=== PATIENT | female | born 1975 | race Caucasian/White ===

== ENCOUNTER 2017-11-24 05:09 | Emergency (ER) | payer SELFPAY ==
[~2017-11-24] VITALS: Ht 160 cm; Wt 90.0 kg
[~2017-11-24 05:09] MED LIST: PHENTERMINE37.5 M1 OR; XANAX0.5 MG OR
[2017-11-24] MEDS ORDERED: METFORMIN500 MG PO (05:20)
[2017-11-24] MEDS ORDERED: BIAXIN500 MG PO (06:05)
[2017-11-24 06:20] VITALS: BP 141/94
== END 2017-11-24 06:20 | disposition home or self-care (01) | DRG 153 ==
LOC: ED 05:09
DX: J02.0 Streptococcal pharyngitis (principal); E11.9 Type 2 diabetes mellitus without complications; Z79.84 Long term (current) use of oral hypoglycemic drugs

== ENCOUNTER 2018-05-02 17:00 | Emergency (ER) | payer SELFPAY ==
[~2018-05-02] VITALS: Ht 160 cm; Wt 87.8 kg
[~2018-05-02 17:00] MED LIST changes: +BIAXIN500 MG PO; +METFORMIN500 MG PO
[2018-05-02] MEDS ORDERED: DOXYCYCL HYC100 MG PO (17:24)
[2018-05-02] MEDS ORDERED: PROAIR HFA108 MCG/AC PO (17:25)
[2018-05-02 17:30] VITALS: BP 143/78
[2018-05-02] MEDS ORDERED: GLIPIZIDE5 M2 PO (17:32)
== END 2018-05-02 17:30 | disposition home or self-care (01) | DRG 153 ==
LOC: ED 17:00
DX: J06.9 Acute upper respiratory infection, unspecified (principal); R50.9 Fever, unspecified; R05 Cough

== ENCOUNTER 2018-05-06 18:57 | Emergency (ER) | payer SELFPAY ==
[~2018-05-06] VITALS: Ht 160 cm; Wt 85.0 kg
[~2018-05-06 18:57] MED LIST changes: +DOXYCYCL HYC100 MG PO; +GLIPIZIDE5 M2 PO; +PROAIR HFA108 MCG/AC PO
[2018-05-06 20:20] LABS: INFLUENZA B NONE DETECTED (NONE DETECT)
[2018-05-06] MEDS ORDERED: ZITHROMAX500 MG PO (21:25)
[2018-05-06] MEDS ORDERED: MEDDOSEPAK PO ×2 (21:25→21:27)
[2018-05-06] MEDS ORDERED: TESSALON PERLE100 MG PO (21:25)
[2018-05-06] MEDS ORDERED: ALBUTEROL SUL0.083 % IN (21:25)
[2018-05-06 21:30] VITALS: BP 134/73
== END 2018-05-06 21:32 | disposition home or self-care (01) | DRG 203 ==
LOC: ED 18:57
DX: J40 Bronchitis, not specified as acute or chronic (principal); E11.9 Type 2 diabetes mellitus without complications

== ENCOUNTER 2019-04-10 10:38 | Inpatient (IN) | payer SELFPAY ==
[~2019-04-10] VITALS: Ht 160 cm; Wt 91.0 kg
[~2019-04-10 10:38] MED LIST changes: +ALBUTEROL SUL0.083 % IN; +CLEOCIN150 MG PO; +MEDDOSEPAK PO; +METFORMIN1000 MG PO; +TESSALON PERLE100 MG PO; +ZITHROMAX500 MG PO
[2019-04-10 11:43] LABS: HEMATOCRIT 38.8 % (37.0-47.0); HEMOGLOBIN 13.1 g/dl (12.0-16.0); IMMATURE GRANULOCYTES 1.1 % (0.0-5.0); MEAN CELL VOLUME 85.7 fL CALC (80.0-100.0); MEAN CORPUSCULAR HGB 28.9 pG CALC (26.0-32.0); MEAN CORPUSCULAR HGB CONC 33.8 g/L CALC (32.0-36.0); NEUT# 10.67 thou/uL (2.00-7.15); RED BLOOD COUNT 4.53 mill/uL (4.20-5.60); RED CELL DISTRI WIDTH 13.6 % (11.5-15.5)
[2019-04-10 11:58] LABS: URINE BLOOD DIPSTICK LARGE (NEGATIVE); URINE GLUCOSE - DIPSTICK >=1000 mg/dL (NEGATIVE); URINE KETONE TRACE mg/dL (NEGATIVE); URINE PH 5.5 (4.5-8.0); URINE PROTEIN - DIPSTICK 100 mg/dL (NEG-TRACE); URINE SPECIFIC GRAVITY 1.015
[2019-04-10 11:59] LABS: URINE BILIRUBIN - DIPSTICK SMALL (NEGATIVE); URINE COLOR DK. YELLOW; URINE LEUK ESTERASE SMALL (NEGATIVE); URINE NITRITE - DIPSTICK POSITIVE (Negative)
[2019-04-10 12:00] LABS: URINE BACTERIA MODERATE hpf; URINE EPITHELIAL CELLS MODERATE EPI/hpf (0-FEW); URINE RBC 25-50 RBC/hpf (0-5)
[2019-04-10 12:05] LABS: CREATININE 1.5 mg/dL (0.5-1.0); POTASSIUM 3.5 mmol/l (3.5-5.1)
[2019-04-10 12:06] LABS: BILIRUBIN, TOTAL 0.9 mg/dL (0.0-1.4)
[2019-04-10 15:12] VITALS: BP 122/72
[2019-04-10 19:05] VITALS: BP 132/69
[2019-04-11] VITALS (11 sets, daily range): BP systolic 93–117; BP diastolic 46–69
[2019-04-11 05:31] LABS: HEMATOCRIT 33.5 % (37.0-47.0); HEMOGLOBIN 11.3 g/dl (12.0-16.0); MEAN CELL VOLUME 85.2 fL CALC (80.0-100.0); MEAN CORPUSCULAR HGB 28.8 pG CALC (26.0-32.0); MEAN CORPUSCULAR HGB CONC 33.7 g/L CALC (32.0-36.0); PLATELET COUNT 109 thou/uL (130-400); RED BLOOD COUNT 3.93 mill/uL (4.20-5.60); RED CELL DISTRI WIDTH 13.4 % (11.5-15.5)
[2019-04-11 05:32] LABS: IMMATURE GRANULOCYTES 1.8 % (0.0-5.0)
[2019-04-11 05:37] LABS: CREATININE 1.4 mg/dL (0.5-1.0); MAGNESIUM 1.9 mg/dL (1.6-2.3)
[2019-04-11 06:07] LABS: BAND 13 % (0-8); IMMATURE CELLS 0 %; MANUAL DIFFERENTIAL YES; NUCLEATED RED BLOOD CELL 0 /100WBC (0-1)
[2019-04-12 04:52] VITALS: BP 116/70
[2019-04-12 08:07] VITALS: BP 118/67
[2019-04-12 08:50] VITALS: BP 119/69
[2019-04-12 10:47] VITALS: BP 114/66
[2019-04-12 15:25] VITALS: BP 116/71
[2019-04-12 19:05] VITALS: BP 136/77
[2019-04-13] VITALS (7 sets, daily range): BP systolic 124–146; BP diastolic 63–80
[2019-04-13 19:41] LABS: HEMATOCRIT 38.7 % (37.0-47.0); HEMOGLOBIN 12.9 g/dl (12.0-16.0); MEAN CELL VOLUME 85.6 fL CALC (80.0-100.0); MEAN CORPUSCULAR HGB 28.5 pG CALC (26.0-32.0); MEAN CORPUSCULAR HGB CONC 33.3 g/L CALC (32.0-36.0); RED BLOOD COUNT 4.52 mill/uL (4.20-5.60); RED CELL DISTRI WIDTH 14.6 % (11.5-15.5)
[2019-04-13 19:49] LABS: ALBUMIN 2.4 g/dL (3.2-5.0); BILIRUBIN, TOTAL 0.8 mg/dL (0.0-1.4); CREATININE 1.2 mg/dL (0.5-1.0); POTASSIUM 3.4 mmol/l (3.5-5.1); TOTAL PROTEIN 5.4 g/dL (6.3-8.2)
[2019-04-14 04:12] VITALS: BP 148/82
[2019-04-14 04:59] LABS: HEMATOCRIT 34.8 % (37.0-47.0); HEMOGLOBIN 11.7 g/dl (12.0-16.0); IMMATURE GRANULOCYTES 5.1 % (0.0-5.0); MEAN CELL VOLUME 83.5 fL CALC (80.0-100.0); MEAN CORPUSCULAR HGB 28.1 pG CALC (26.0-32.0); MEAN CORPUSCULAR HGB CONC 33.6 g/L CALC (32.0-36.0); PLATELET COUNT 188 thou/uL (130-400); RED BLOOD COUNT 4.17 mill/uL (4.20-5.60); RED CELL DISTRI WIDTH 14.2 % (11.5-15.5)
[2019-04-14 05:00] LABS: MANUAL DIFFERENTIAL YES
[2019-04-14 05:05] LABS: ALBUMIN 2.2 g/dL (3.2-5.0); BILIRUBIN, TOTAL 0.6 mg/dL (0.0-1.4); CREATININE 1.2 mg/dL (0.5-1.0); POTASSIUM 3.2 mmol/l (3.5-5.1); TOTAL PROTEIN 4.9 g/dL (6.3-8.2)
[2019-04-14 05:26] LABS: PLATELET ESTIMATE NORMAL
[2019-04-14 07:45] VITALS: BP 149/76
[2019-04-14 18:46] VITALS: BP 135/78
[2019-04-15 03:59] VITALS: BP 153/78
[2019-04-15 07:29] LABS: HEMATOCRIT 32.5 % (37.0-47.0); HEMOGLOBIN 10.9 g/dl (12.0-16.0); MEAN CELL VOLUME 84.2 fL CALC (80.0-100.0); MEAN CORPUSCULAR HGB 28.2 pG CALC (26.0-32.0); MEAN CORPUSCULAR HGB CONC 33.5 g/L CALC (32.0-36.0); RED BLOOD COUNT 3.86 mill/uL (4.20-5.60); RED CELL DISTRI WIDTH 14.7 % (11.5-15.5)
[2019-04-15 07:53] LABS: ALKALINE PHOSPHATASE 298 u/l (38-126); ANION GAP 11 (6-22 (CALC)); BILIRUBIN, TOTAL 0.5 mg/dL (0.0-1.4); BUN 21 mg/dL (7-17); BUN/CREATININE RATIO 20 (12-20 (CALC)); CARBON DIOXIDE 20 mmol/l (22-30); CHLORIDE 109 mmol/l (95-108); CREATININE 1.1 mg/dL (0.5-1.0); GFR 54 ML/MIN (>=60 (CALC)); GFR FOR AFR.AMER. > 60 ML/MIN (>=60 (CALC)); POTASSIUM 3.3 mmol/l (3.5-5.1); SGOT/AST 20 u/l (14-36); SODIUM 136 mmol/l (137-146); TOTAL PROTEIN 4.6 g/dL (6.3-8.2)
[2019-04-15 08:00] VITALS: BP 151/71
[2019-04-15 16:00] VITALS: BP 192/104
[2019-04-15 18:37] VITALS: BP 148/81
[2019-04-15 18:50] VITALS: BP 158/76
[2019-04-15 23:48] VITALS: BP 146/59
[2019-04-16 03:50] VITALS: BP 159/71
[2019-04-16 06:16] LABS: HEMATOCRIT 35.6 % (37.0-47.0); HEMOGLOBIN 11.8 g/dl (12.0-16.0); IMMATURE GRANULOCYTES 4.2 % (0.0-5.0); MEAN CELL VOLUME 85.2 fL CALC (80.0-100.0); MEAN CORPUSCULAR HGB 28.2 pG CALC (26.0-32.0); MEAN CORPUSCULAR HGB CONC 33.1 g/L CALC (32.0-36.0); NEUT# 9.77 thou/uL (2.00-7.15); RED BLOOD COUNT 4.18 mill/uL (4.20-5.60); RED CELL DISTRI WIDTH 14.7 % (11.5-15.5)
[2019-04-16 06:34] LABS: ANION GAP 13 (6-22 (CALC)); BUN 16 mg/dL (7-17); BUN/CREATININE RATIO 18 (12-20 (CALC)); CARBON DIOXIDE 20 mmol/l (22-30); CHLORIDE 109 mmol/l (95-108); CREATININE 0.9 mg/dL (0.5-1.0); GFR > 60 ML/MIN (>=60 (CALC)); GFR FOR AFR.AMER. > 60 ML/MIN (>=60 (CALC)); MAGNESIUM 1.8 mg/dL (1.6-2.3); POTASSIUM 3.8 mmol/l (3.5-5.1); SODIUM 138 mmol/l (137-146)
[2019-04-16 07:49] LABS: ALBUMIN 2.3 g/dL (3.2-5.0); BILIRUBIN, TOTAL 0.6 mg/dL (0.0-1.4); TOTAL PROTEIN 5.3 g/dL (6.3-8.2)
[2019-04-16 07:52] VITALS: BP 154/79
[2019-04-16] MEDS ORDERED: LORTAB5 PO (11:01)
[2019-04-16] MEDS ORDERED: ROCEPHIN1 G1 IV (11:01)
[2019-04-16] MEDS ORDERED: LEVEMIR FL100 UNIT/M SC (11:01)
== END 2019-04-16 13:50 | disposition home or self-care (01) | DRG 854 ==
LOC: ED 10:38 → ED-I 13:12 → ED 13:33 → MS2 13:34
PROVIDERS: Family Medicine; Nurse Practitioner Family; ADMIT Internal Medicine; ATTEND Internal Medicine
PROC: 0FT44ZZ Resection of Gallbladder, Percutaneous Endoscopic Approach (ICD-10-PCS; principal; 2019-04-11)
PROC: BF001ZZ Plain Radiography of Bile Ducts using Low Osmolar Contrast (ICD-10-PCS; 2019-04-11)
PROC: 02HV33Z Insertion of Infusion Device into Superior Vena Cava, Percutaneous Approach (ICD-10-PCS; 2019-04-14)
PROC: B518ZZA Fluoroscopy of Superior Vena Cava, Guidance (ICD-10-PCS; 2019-04-14)
DX: R78.81 Bacteremia (principal); K81.0 Acute cholecystitis; E87.1 Hypo-osmolality and hyponatremia; N17.9 Acute kidney failure, unspecified; E11.65 Type 2 diabetes mellitus with hyperglycemia; E87.6 Hypokalemia; E11.22 Type 2 diabetes mellitus with diabetic chronic kidney disease; N18.9 Chronic kidney disease, unspecified; R74.0 Nonspecific elevation of levels of transaminase and lactic acid dehydrogenase [LDH]; R74.8 Abnormal levels of other serum enzymes; B96.20 Unspecified Escherichia coli [E. coli] as the cause of diseases classified elsewhere; Z87.891 Personal history of nicotine dependence; Z88.0 Allergy status to penicillin; Z79.84 Long term (current) use of oral hypoglycemic drugs
CPT/HCPCS: J0131; J2710; Q9967

== ENCOUNTER 2019-05-03 14:02 | Emergency (ER) | payer SELFPAY ==
[~2019-05-03 14:02] MED LIST changes: +LEVEMIR FL100 UNIT/M SC; +LORTAB5 PO; +ROCEPHIN1 G1 IV
== END 2019-05-03 16:00 | disposition home or self-care (01) | DRG 950 ==
LOC: ED 14:02
DX: Z45.2 Encounter for adjustment and management of vascular access device (principal)

== ENCOUNTER 2024-02-06 10:43 | Emergency (ER) | payer SELFPAY ==
[2024-02-06] VITALS (17 sets, daily range): BP systolic 166–211; BP diastolic 77–110
[~2024-02-06] VITALS: Ht 160 cm; Wt 81.6 kg
[2024-02-06] MEDS ORDERED: METHOCARBAMOL 1,000 MG/10 ML VIAL IV ONE (12:35)
[2024-02-06] MEDS ORDERED: LOSARTAN Potassium 50 MG/TAB PO ONE (12:35)
[2024-02-06] MEDS ORDERED: DEXAMETHASONE SOD. PHOSPHATE 10 MG/ML VIAL IV ONE (12:35)
[2024-02-06] MEDS ORDERED: KETOROLAC TROMETHAMINE 30 MG/ML SDV IV ONE (12:35)
[2024-02-06 13:17] LABS: BASO% 0.8 % (0-3); IMMATURE GRANULOCYTES 0.2 % (0.0-5.0); MEAN CELL VOLUME 89.8 fL CALC (80.0-100.0); MEAN CORPUSCULAR HGB CONC 34.5 g/dL CAL (32.0-36.0); MONO% 9.7 % (2-13); NEUT# 2.9 thou/uL (2.00-7.15); NEUT% 55.3 % (42-76); RED BLOOD COUNT 4.71 mill/uL (4.20-5.60)
[2024-02-06 13:18] LABS: HEMATOCRIT 42.3 % (37.0-47.0); HEMOGLOBIN 14.6 g/dl (12.0-16.0)
[2024-02-06 13:34] LABS: BILIRUBIN, TOTAL 0.7 mg/dL (0.02-1.3); CREATININE 0.4 mg/dL (0.5-1.0); POTASSIUM 3.5 mmol/l (3.5-5.1)
[2024-02-06 13:45] LABS: ALBUMIN 3.9 g/dL (3.2-5.0)
[2024-02-06] MEDS ORDERED: LABETALOL HCL 20 MG/ 4 ML CARTRG IV ONE (14:40)
[2024-02-06] MEDS ORDERED: COZAAR50 MG PO (16:08)
[2024-02-06] MEDS ORDERED: NAPROXEN500 MG PO (16:08)
[2024-02-06] MEDS ORDERED: METHOCARBAMOL500 MG PO (16:08)
== END 2024-02-06 16:43 | disposition home or self-care (01) | DRG 552 ==
LOC: ED 10:43
PROVIDERS: Nurse Practitioner
DX: M54.32 Sciatica, left side (principal); R03.0 Elevated blood-pressure reading, without diagnosis of hypertension; E11.9 Type 2 diabetes mellitus without complications; Z79.84 Long term (current) use of oral hypoglycemic drugs; Z79.4 Long term (current) use of insulin